=== PATIENT | male | born 1950 | race Caucasian/White ===

== ENCOUNTER → 2016-04-23 | Outpatient (CLI) | payer BC ==
[~2016-04-23] VITALS: Ht 162.6 cm; Wt 75.3 kg
[2016-04-23] VITALS (10 sets, daily range): BP systolic 108–145; BP diastolic 64–88
[~2016-04-23] MED LIST: ACETAMINOPHEN 325 MG TABLET. PO PRN; ASPI81TA2 PO; AZEL137S3 NS; BUDE10.2 IH; CARV12.52 PO; CONTRAST GIVEN MC PRN; DILTIAZEM IV PUSH 10 MG, NITROGLYCERIN 4MG SYRINGE 4 MG, HEPARIN S0DIUM 10,000 UNIT, VI... INT CAT ONE; DILTIAZEM IV PUSH 25 MG/5 ML VIAL. ONE; FENTANYL PF 100 MCG/2 ML VIAL. IV ONE; FENTANYL PF 250 MCG/5 ML VIAL. IV ONE; FENTANYL PF 250 MCG/5 ML VIAL. ONE; FLUT16SP NS; FOLI400T2 PO; HEPARIN for ARTERIAL LINE 1,500 ML ONE; HEPARIN for IV BOLUS 10,000 UNIT/10 ML VIAL. IV ONE; HEPARIN for IV BOLUS 10,000 UNIT/10 ML VIAL. ONE; INSU100C4 SQ; INSU100V8 SQ; IODIXANOL 320 MG/ML 100 ML VIAL. IART ONE; IODIXANOL 320 MG/ML 100 ML VIAL. ONE; IV 1/2 NORMAL SALINE 1,000 ML IV SCH; IV NORMAL SALINE 1000ML BAG 1,000 ML IV SCH; LIDOCAINE 2% 20 ML VIAL. IJ ONE; LIDOCAINE 2% 20 ML VIAL. ONE; LISI-334 PO; MAGNESIUM HYDROXIDE 2,400 MG/30 ML ORAL.SUSP. PO PRN; METF10002 PO; MIDAZOLAM HCL 2 MG/2 ML VIAL. IV ONE; MIDAZOLAM HCL/PF 5 MG/5 ML VIAL IV ONE; MIDAZOLAM HCL/PF 5 MG/5 ML VIAL ONE; NAPR500T8 PO; NIAC500T PO; NITROGLYCERIN 4 MG/20 ML SYRINGE for CATH LAB. ONE; NITROGLYCERIN SUBLINGUAL 0.4 MG BOTTLE OF 25. SL PRN; OMEP20TA PO; SIMV40TA3 PO; TERB250T8 PO; ZOLP10TA4 PO
[2016-04-23 09:38] LABS: HEMATOCRIT 49.1 % (39.0-53.0); HEMOGLOBIN 16.5 g/dL (13.0-17.5); RED BLOOD COUNT 5.46 x10^6/uL (4.30-5.70); RED CELL DISTRIBUTION WIDTH 13.2 % (11.5-14.5); WHITE BLOOD COUNT 8.8 x10^3/uL (4.0-11.0)
[2016-04-23 09:56] LABS: PROTHROMBIN TIME PATIENT 12.3 SEC (11.7-14.0)
[2016-04-23 10:04] LABS: CREATININE 0.9 mg/dL (0.7-1.3); GFR 84.4; POTASSIUM 4.5 mmol/L (3.5-5.1)
--- NOTE | 2016-04-23 10:37 | PDOC ---
MODERATE SEDATION ASSESSMENT RISKS/ALTERNATIVES Risks/Alternatives Risks and alternatives of this type of sedation and procedure discussed with: RISK/ALTERNATIVES: Patient H & P ON CHART H & P H & P on chart and reviewed for co-morbid conditions and appropriate labs. H&P ON CHART: Yes STATUS PREG STATUS ASSESSED: N/A MEDS/ALLERGIES REVIEWED Meds/Allergies Reviewed Medications and Allergies including time and route of recently administered narcotics and sedatives. MEDS/ALLERGIES REVIEWED: Yes ASA RATING ASA RATING: II AIRWAY ASSESSMENT Airway Assessment Airway patency, oral function limitations, presence of caps, crowns, dentures, partials, and ability to extend neck assessed. AIRWAY ASSESSMENT: Yes MALLAMPATI SCORE MALLAMPATI SCORE: II PRE-SEDATION ASSESSMENT PRE-SEDATION ASSESSMENT: Yes ISABELLE ALEJANDRE MD Apr 23, 2016 10:36
--- NOTE | 2016-04-23 13:40 | CARD ---
APPROVED REPORT Patient StatusOUT-PATIENT Rubber Compounder: Beckie Torres RT (R) Procedure(s) performed: 1. Aortogram with bilateral lower extremity runoff. 2. Successful orbital atherectomy/balloon SURVEY COORDINATOR to right superficial femoral artery. INDICATION FOR PROCEDURE The indication(s) include : Peripheral vascular disease with claudication. PROCEDURE NARRATIVE After explaining the risks, benefits and alternative options, informed consent was obtained from dave ent. Patient brought to the [facility] and his left groin was prepped and draped in the usual f ashion. 20 mL of 2% lidocaine was infiltrated into the skin and subcutaneous tissues for local anest hesia. Arterial access was obtained the left common femoral artery and a 5 Gabonese sheath was inserte d. A 5 Gabonese pigtail catheter was used to perform aortogram with bilateral lower extremity runoff. The following findings were noted. FINDINGS 1. No significant stenosis involving the distal descending aorta, bilateral common iliac and externa l iliac arteries. 2. No significant stenosis involving bilateral common femoral arteries. 3. The right superficial femoral artery showed 90% stenosis in the midsegment. The left superficial femoral artery did not show any significant stenosis. 4. Bilateral popliteal arteries did not show any significant stenosis. There is three vessel runoff below the knee bilaterally. INTERVENTION The sheath in the left groin was exchanged to a 45 cm 6 Gabonese destination sheath that was advanced o tianna the aortic anton into the right superficial femoral artery with the help of 4 crossover catheter . The stenosis in the midsegment of the right superficial femoral artery was crossed with a 0.014 in ch viper guidewire. Multiple atherectomy passes were performed using 1.5 CSI Stealth orbital atherec fazal catheter. Subsequently this was predilated with a 5.5 x 80 mm [place] balloon. Follow-up angiog nancy showed resolution of the stenosis to 0% with good distal flow. Patient tolerated the procedure well. Hemostasis in the left groin was achieved using Perclose suture closure device. There were n o immediate complications. Conclusion Successful orbital atherectomy/SURVEY COORDINATOR to right superficial femoral artery. Recommendations Risk factor modification.
== END | disposition home or self-care (01) ==
LOC: CCL 09:00
PROVIDERS: ATTEND Internal Medicine Cardiovascular Disease
DX: I73.9 Peripheral vascular disease, unspecified (principal); J44.9 Chronic obstructive pulmonary disease, unspecified; K21.9 Gastro-esophageal reflux disease without esophagitis; E11.9 Type 2 diabetes mellitus without complications; F17.200 Nicotine dependence, unspecified, uncomplicated
CPT/HCPCS: 36415; 37225; 75630; 80048; 85027; 85610; 85730; C1725; C1769; C1771; C1892; G0269; J2250; J3010; J3490; J7030

== ENCOUNTER → 2016-11-22 | Outpatient (CLI) | payer MEDICARE ==
[2016-04-23 13:45] VITALS: BP 122/77
[~2016-11-22] MED LIST changes: -ACETAMINOPHEN 325 MG TABLET. PO PRN; +ASPI-630 PO; -ASPI81TA2 PO; -CONTRAST GIVEN MC PRN; -DILTIAZEM IV PUSH 10 MG, NITROGLYCERIN 4MG SYRINGE 4 MG, HEPARIN S0DIUM 10,000 UNIT, VI... INT CAT ONE; -DILTIAZEM IV PUSH 25 MG/5 ML VIAL. ONE; -FENTANYL PF 100 MCG/2 ML VIAL. IV ONE; -FENTANYL PF 250 MCG/5 ML VIAL. IV ONE; -FENTANYL PF 250 MCG/5 ML VIAL. ONE; -HEPARIN for ARTERIAL LINE 1,500 ML ONE; -HEPARIN for IV BOLUS 10,000 UNIT/10 ML VIAL. IV ONE; -HEPARIN for IV BOLUS 10,000 UNIT/10 ML VIAL. ONE; -IODIXANOL 320 MG/ML 100 ML VIAL. IART ONE; -IODIXANOL 320 MG/ML 100 ML VIAL. ONE; -IV 1/2 NORMAL SALINE 1,000 ML IV SCH; -IV NORMAL SALINE 1000ML BAG 1,000 ML IV SCH; -LIDOCAINE 2% 20 ML VIAL. IJ ONE; -LIDOCAINE 2% 20 ML VIAL. ONE; -MAGNESIUM HYDROXIDE 2,400 MG/30 ML ORAL.SUSP. PO PRN; +METF-620 PO; -METF10002 PO; -MIDAZOLAM HCL 2 MG/2 ML VIAL. IV ONE; -MIDAZOLAM HCL/PF 5 MG/5 ML VIAL IV ONE; -MIDAZOLAM HCL/PF 5 MG/5 ML VIAL ONE; -NITROGLYCERIN 4 MG/20 ML SYRINGE for CATH LAB. ONE; -NITROGLYCERIN SUBLINGUAL 0.4 MG BOTTLE OF 25. SL PRN; -OMEP20TA PO; +OMEP20TA8 PO
--- NOTE | 2016-11-22 16:54 | RAD ---
APPROVED REPORT Patient Location : OUT-PATIENT Indications Lower Extremity Edema : Bilateral Findings The right great saphenous vein measures approximate 6 mm and does not show any evidence of reflux. The left great saphenous vein measures approximately 5.4 mm and does not show any evidence of reflux The bilateral lesser saphenous veins do not show any evidence of reflux and measure approximately 2 m m. Critical Notification Critical Value: No <Conclusion> No evidence of reflux in the bilateral greater and lesser saphenous veins.
== END | disposition home or self-care (01) ==
LOC: US 08:51
PROVIDERS: ATTEND Internal Medicine Cardiovascular Disease
DX: R60.0 Localized edema (principal)
CPT/HCPCS: 93970

== ENCOUNTER → 2018-06-23 | Outpatient (CLI) | payer MEDICARE ==
[2016-04-23 13:45] VITALS: BP 122/77
[~2018-06-23] MED LIST changes: +CARV12.511 PO; -CARV12.52 PO; -METF-620 PO; +METF10007 PO; +TERB250T11 PO; -TERB250T8 PO
--- NOTE | 2018-06-23 08:38 | RAD ---
Low-dose CT of the chest without contrast, 06/23/2018: HISTORY: Smoking history, shortness of breath Noncontrast scans were obtained as requested. Moderate emphysematous changes are present in the lungs with multiple subpleural blebs. There are a few scattered linear parenchymal scars. Several granulomata are present in the left lung. A tiny calcified granuloma is present medially in the right lower lobe. There is a 6 mm noncalcified peripheral pulmonary nodule in the anterolateral aspect of the right middle lobe as seen on axial image 154 of series #2 and sagittal image 301 of series #8. This nodule is slightly elongated. There is a tiny 3 mm nodule in the lateral aspect of the right upper lobe as seen on image 103 of series #2. There is a tiny elongated subpleural opacity in the lateral aspect of the right lower lobe as best seen on coronal image 203 of series #7 and axial image 202 of series #2. The configuration is most compatible with a scar. A similar smaller scarlike opacity is seen laterally in the right lower lobe on axial image 185 of series #2. Several other very tiny nodules are noted such as a 2 mm peripheral nodule in the left lower lobe as seen on image 204 series #2. There is moderate calcific plaquing of the thoracic aorta without evidence of aneurysm. Moderate coronary artery calcifications are present. There is moderate calcification of the mitral annulus. The heart is not enlarged. There are calcified mediastinal and left hilar lymph nodes compatible with old granulomatous disease. No mediastinal adenopathy is evident. Moderate multilevel degenerative changes are present in the spine. IMPRESSION: 1. Moderate pulmonary emphysema with parenchymal scarring. 2. Old healed granulomatous disease in the chest. 3. Several small nonspecific pulmonary nodules are noted as described above. This represents Lung-RADS category 3, probably benign. Low-dose CT follow-up in 6 months is suggested. 4. Moderate coronary artery calcifications. PQRS Compliance Statement: One or more of the following individualized dose reduction techniques were utilized for this examination: 1. Automated exposure control 2. Adjustment of the mA and/or kV according to patient size 3. Use of iterative reconstruction technique Electronically signed by: Jose Javed MD (06/23/2018 8:35 AM) [facility]
--- NOTE | 2018-06-23 08:46 | RAD ---
Abdominal aortic ultrasound, 06/23/2018: HISTORY: Aortic screening, tobacco abuse A limited exam of the abdominal aorta was performed. There are moderate scattered atherosclerotic plaques. The aorta measures 1.5 cm in greatest width. There is no evidence of aortic aneurysm. Incidental note was made of echogenic foci within the gallbladder compatible with gallstones. The gallbladder is largely collapsed. IMPRESSION: 1. Aortic atherosclerosis without evidence of abdominal aortic aneurysm. 2. Incidental note is made of cholelithiasis. Electronically signed by: Jose Javed MD (06/23/2018 8:43 AM) [facility]
== END | disposition home or self-care (01) ==
LOC: US 07:43
PROVIDERS: ATTEND Physician Assistant Surgical
DX: Z12.2 Encounter for screening for malignant neoplasm of respiratory organs (principal); J43.9 Emphysema, unspecified; R91.8 Other nonspecific abnormal finding of lung field; I70.0 Atherosclerosis of aorta; K80.20 Calculus of gallbladder without cholecystitis without obstruction; I25.10 Atherosclerotic heart disease of native coronary artery without angina pectoris; Z87.891 Personal history of nicotine dependence
CPT/HCPCS: 76770; G0297

== ENCOUNTER → 2019-02-15 | Outpatient (CLI) | payer MEDICARE ==
[2016-04-23 13:45] VITALS: BP 122/77
--- NOTE | 2019-02-15 11:34 | RAD ---
CT CHEST WO CONTRAST Indication: Lung nodule Technique: Noncontrast CT imaging was performed of the chest as per low dose protocol, multiplanar reconstruction images submitted. One or more of the following individualized dose reduction techniques were utilized for this examination: 1. Automated exposure control 2. Adjustment of the mA and/or kV according to patient size 3. Use of iterative reconstruction technique. Comparison: June 23, 2018 Findings: There is a 0.6 cm left upper lobe nodule image 1 which is new. 0.5 cm right lower lobe nodule image 210 series 2 is stable. 0.3 to 0.4 cm right lower lobe nodule image 192 is stable. 0.2-0.3 cm right lower lobe subpleural nodule image 159 is stable. Tiny 0.2 cm posterior right upper lobe nodule image 94 is unchanged. 0.2 cm right upper lobe nodule image 60 is unchanged. 2 small right upper lobe nodules image 67 about 0.2 cm each are unchanged. 0.5 cm right middle lobe nodule image 164 is unchanged. 0.2 cm right lower lobe nodule image 225 is stable. 0.4 cm left lower lobe nodule image 221 is stable. There is again some calcified nodularity of the left upper lobe. There is emphysema. There is no pleural or pericardial fluid, pneumothorax, new lobar consolidation. There is coronary calcification. No new significantly enlarged nodes are identified of the chest, some stable subcentimeter mediastinal nodes. IMPRESSION: 1. There is new focus of noncalcified nodularity of the left upper lobe about 0.6 cm Lung-RADS category 4A, 3 month low-dose CT recommended. Other pulmonary nodules are stable. 2. There is coronary calcification. 3. There is emphysema. Electronically signed by: Dutch Paris MD (02/15/2019 11:31 AM) [id number]
== END | disposition home or self-care (01) ==
LOC: CT 10:28
PROVIDERS: ATTEND Family Medicine
DX: J43.9 Emphysema, unspecified (principal); R91.8 Other nonspecific abnormal finding of lung field; I25.10 Atherosclerotic heart disease of native coronary artery without angina pectoris
CPT/HCPCS: 71250

== ENCOUNTER → 2019-04-09 | Outpatient (CLI) | payer MEDICARE ==
[2016-04-23 13:45] VITALS: BP 122/77
[~2019-04-09] MED LIST changes: +SIMV40TA18 PO; -SIMV40TA3 PO
--- NOTE | 2019-04-09 12:21 | RAD ---
EXAM: Chest, 2 views. HISTORY: COPD exacerbation. COMPARISON: 02/15/2019. FINDINGS: 2 views of the chest are obtained. There are coarse likely chronic interstitial markings. There is no consolidation, effusion or pneumothorax. There is hyperinflation due to emphysema. The heart is normal in size. There are few calcified granulomas. IMPRESSION: 1. Emphysema with chronic coarse interstitial changes. 2. Note is made that pulmonary nodules demonstrated on the recent CT are not well seen radiographically. Please refer to the prior CT report for follow-up recommendations. Electronically signed by: Angela Torres MD (04/09/2019 12:17 PM) [place] [id number]
== END | disposition home or self-care (01) ==
LOC: RAD 10:51
PROVIDERS: ATTEND Family Medicine
DX: J43.8 Other emphysema (principal); R91.8 Other nonspecific abnormal finding of lung field
CPT/HCPCS: 71046

== ENCOUNTER → 2019-04-23 | Outpatient (CLI) | payer MEDICARE ==
[2016-04-23 13:45] VITALS: BP 122/77
--- NOTE | 2019-04-23 17:56 | RAD ---
Examination: CT LOW DOSE LUNG SCREENING History: Lung nodule, 3 packs a day smoking history for 53 years. Comparison/Correlation: 06/23/2018 low dose lung cancer screening CT exam, 02/15/2019 CT chest without contrast Findings: Axial images of the chest were obtained without contrast according to low-dose lung cancer screening CT protocol. Coronary arterial calcific involvement of the coronary arteries is noted. Mitral annular calcification is visible. Emphysematous involvement of the lung zavala again identified this is primarily the upper lung zavala. Minimal lingular intravenous atelectasis is present. Calcified granuloma granulomas at the left mid thoracic level adjacent to the major fissure noted. Punctate noncalcified granulomas are present bilaterally involving the lung zavala similar to the prior exam. These are especially prominent at the upper lung field level. Noncalcified nodule in the right lateral mid thoracic level measuring up to 0.55 cm is unchanged and this is currently seen on axial image 162 of series 2. Noncalcified nodule involving the right lower lobe on axial image 202 of series 2 measuring 0.5 cm diameter is also unchanged compared to 06/23/2018. No suspicious left upper lobe nodule identified. Visualized upper abdomen is unremarkable. Advancement thoracic degenerative disc space narrowing with sclerosis of multiple consecutive vertebral bodies again identified. A Impression: BI-RADS Category 2-benign. Annual low-dose lung cancer screening CT examination is recommended. PQRS Compliance Statement: One or more of the following individualized dose reduction techniques were utilized for this examination: 1. Automated exposure control 2. Adjustment of the mA and/or kV according to patient size 3. Use of iterative reconstruction technique Electronically signed by: Gonzalo Echols MD (04/23/2019 5:53 PM) [facility]
== END | disposition home or self-care (01) ==
LOC: CT 10:57
PROVIDERS: ATTEND Family Medicine
DX: Z12.2 Encounter for screening for malignant neoplasm of respiratory organs (principal); J43.9 Emphysema, unspecified; J98.11 Atelectasis; R91.8 Other nonspecific abnormal finding of lung field; F17.210 Nicotine dependence, cigarettes, uncomplicated; I25.10 Atherosclerotic heart disease of native coronary artery without angina pectoris; I34.0 Nonrheumatic mitral (valve) insufficiency; M51.34 Other intervertebral disc degeneration, thoracic region; M48.04 Spinal stenosis, thoracic region
CPT/HCPCS: G0297

== ENCOUNTER → 2020-09-22 | Outpatient (CLI) | payer MEDICARE ==
[2016-04-23 13:45] VITALS: BP 122/77
[~2020-09-22] MED LIST changes: -LISI-334 PO; +LISI20TA18 PO; -TERB250T11 PO; +TERB250T84 PO
--- NOTE | 2020-09-22 12:50 | RAD ---
EXAM: Chest CT without intravenous contrast. HISTORY: Pulmonary nodule follow-up. TECHNIQUE: Computed tomographic images of the chest were obtained without contrast. Multiplanar refor matting was performed. *One or more of the following individualized dose reduction techniques were utilized for this examina tion: 1. Automated exposure control. 2. Adjustment of the mA and/or kV according to patient size. 3. Use of iterative reconstruction technique. COMPARISON: 04/23/2019, 02/15/2019. FINDINGS: There is pulmonary emphysema with associated subpleural bleb formation. There is no pneumot horax or pleural effusion. There is no infiltrate. There are multiple bilateral pulmonary nodules. Th e largest nodule abuts the pleura of the posterior lateral right lower lobe measuring 6 mm, stable co mpared to a study performed 02/15/2019. There is an adjacent smaller nodule measuring 5 mm superior t o this location. There is a 3 mm nodule within the lateral right upper lobe, also stable in appearanc e. There are several 2 mm nodules within the bilateral upper and lower lobes and a predominantly dav pheral distribution. There are calcified granulomas within the left upper lobe. The heart is normal in size. There is calcified atherosclerotic plaque involving the aorta and bhagat ry arteries. There is calcification of the aortic valve and mitral valve annulus. There are nonspecif ic stable mediastinal lymph nodes. The stability favors a benign physiologic or reactive in etiology. There is stable pleural parenchymal scarring involving the lingula. There is no acute finding involv ing the upper abdomen. There is a simple cyst within the right kidney. Follow-up is not routinely per formed for simple cysts. There is degenerative disc space narrowing with endplate remodeling and scle rosis involving the T6-T9 vertebral bodies. There is stable compared to prior studies. IMPRESSION: 1. Multiple bilateral pulmonary nodules, the largest of which measures 6 mm within the right lower lo be. These are not appreciably changed compared to prior studies dating to 02/15/2019. This favors bruce ignity. Lung RADS category 2: 12 month follow-up is recommended. 2. Emphysema. 3. Stable nonspecific mediastinal lymph nodes, likely physiologic or reactive in etiology. 4. Heavily calcified atherosclerotic plaque involving the coronary arteries and calcification of the aortic valve. 5. Stable sclerotic changes with disc space narrowing involving the T6-T9 vertebral segments. Given a history of the spinal cord lesion, this may be due to radiation changes. The possibility of changes due to the sequela of prior discitis/osteomyelitis is not excluded. Electronically signed by: Angela Torres MD (09/22/2020 12:47 PM) [id number]
== END ==
LOC: CT 10:20
PROVIDERS: ATTEND Family Medicine
DX: R91.8 Other nonspecific abnormal finding of lung field (principal); I25.10 Atherosclerotic heart disease of native coronary artery without angina pectoris
CPT/HCPCS: 71250

== ENCOUNTER → 2020-09-25 | Outpatient (CLI) | payer MEDICARE ==
[2016-04-23 13:45] VITALS: BP 122/77
--- NOTE | 2020-09-25 10:59 | RAD ---
EXAM: Lumbar spine MRI without contrast. HISTORY: Radiculopathy. TECHNIQUE: Multiplanar, multisequence magnetic resonance imaging of the lumbar spine was performed wi thout contrast. COMPARISON: None. FINDINGS: There is a transitional lumbosacral segment. This is considered a partially sacralized L5 s egment with rudimentary L5-S1 disc for this dictation. The the sacralized right L5 transverse process articulates with the underlying sacrum, a normal variant. There is mild S-shaped lumbar scoliosis, w ith dextrocurvature centered at L4-L5 and levocurvature centered at L2-L3. There is degenerative endp late remodeling with disc space narrowing and osteophytosis primarily along the left aspect of L4-L5. There are few small endplate Schmorl's nodes. There are few osseous hemangiomas. There is no suspici ous osseous lesion or acute osseous finding. The conus terminates at T12. There are small right renal cyst. Follow-up is not routinely performed for simple cysts. There is suspected congenital narrowing of the central canal at the lumbar levels. There is prominent epidural fat at the lumbar levels. At T12-L1, there is a shallow posterior central disc protrusion and annular tear superimposed on a di sc bulge and endplate remodeling. There is mild bilateral foraminal stenosis. At L1-L2, there is no stenosis. At L2-L3, there is a disc bulge and endplate remodeling. There is mild right foraminal stenosis. Ther e is mild central canal stenosis and narrowing of the right lateral recess. At L3-L4, there is a right foraminal to extra foraminal disc protrusion and annular tear with osteoph yte complex superimposed on a right lateral predominant disc bulge and endplate osteophytosis. There is moderate right and mild left facet arthropathy. There is a small posterior right facet joint synov ial cyst. There is severe right and moderate left foraminal stenosis. There is severe central canal s tenosis. At L4-L5, there is a left lateral recess to extra foraminal disc protrusion and osteophyte complex albarado perimposed on a diffuse disc bulge and left lateral predominant endplate osteophytosis. There is giuliana re left facet arthropathy. There is moderate right and severe left foraminal stenosis. There is sever e central canal stenosis. At L5-S1, there is a rudimentary disc at this level. There is a shallow right foraminal to extra fora pieter disc protrusion superimposed on right lateral predominant endplate remodeling. There is mild bi lateral foraminal stenosis. IMPRESSION: 1. Multilevel degenerative change involving the lower thoracic and lumbar spine, described in detail above. This is associated with mild bilateral foraminal stenosis at T12-L1, mild right foraminal and central canal stenosis with narrowing of the right lateral recess at L2-L3, severe right and moderate left foraminal and severe central canal stenosis at L3-L4, moderate right and severe left foraminal and severe central canal stenosis at L4-5 and mild bilateral foraminal stenosis at L5-S1. 2. Lumbar scoliosis. 3. Transitional lumbosacral segment, considered a partially sacralized L5 segment for this dictation. Electronically signed by: Angela Torres MD (09/25/2020 10:57 AM) [id number]
== END ==
LOC: MRI 09:21
PROVIDERS: ATTEND Family Medicine
DX: M47.26 Other spondylosis with radiculopathy, lumbar region (principal); M51.36 Other intervertebral disc degeneration, lumbar region; M71.38 Other bursal cyst, other site
CPT/HCPCS: 72148

== ENCOUNTER → 2020-10-14 | Outpatient (CLI) | payer MEDICARE ==
[2016-04-23 13:45] VITALS: BP 122/77
[~2020-10-14] MED LIST changes: +ALBU0.63 NEB; +CHOL100L MC; +CYAN25008 PO; +DAPA10TA PO; +FLUT1BLS3 IH; +IOHEXOL 180 MG/ML 10 ML VIAL. ONE; +IPRA0.2S5 NEB; +IPRA4AER IH; +methylPREDNISolone ACETATE 40 MG/ML VIAL. ONE; +methylPREDNISolone ACETATE 80 MG/ML VIAL. ONE
--- NOTE | 2020-10-14 13:03 | PDOC1 ---
INITIAL PAIN CONSULT DATE OF SERVICE: DOS: DATE: 10/14/20 TIME: 12:58 CHIEF COMPLAINT: Chief Complaint: Low back and left lower extremity pain HISTORY OF PRESENT ILLNESS: 70-year-old male presents history of pain in the low back and left lower extremity for many years worse over the past 1 to 2 years not the result of any specific injury or activities where time low back with walking standing changing positions patient reports is most noticeable with standing in 1 place but also with ambulation patient reports is better with sitting or laying down but generally wakes him from sleep about 3 times a night especially if he lays on his left side. Patient reports does not affect his bowel bladder control but does affect his ability to walk he is not getting assistive devices however patient has had epidural injections in the past with very good results also done physical therapy in the past which has been helpful but nothing recently patient is still doing some stretching and exercises and tries to walk daily but lately has become difficult as because the pain is getting worse. Patient is taking hydrocodone as well as any acetaminophen the hydrocodone does help but the acetaminophen not significantly. Patient rates his disability rating 0-10 10 being the worst is a 10 with family home responsibilities recreation social activity occupation 7 with self-care and 5 with life support activities. Patient did have a MRI scan of the lumbar spine showing multilevel degenerative change with bilateral foraminal stenosis T12-L1 right foraminal and central canal stenosis with narrowing of the right lateral recess at L2-3 severe right and moderate left foraminal and severe central canal stenosis L3-4 moderate right and severe left foraminal and severe central canal stenosis L4-5 with mild bilateral foraminal narrowing and stenosis at L5-S1. Patient reports no loss of motor function but significant fatigability with standing and walking especially on the right lower extremity. PAST MEDICAL HISTORY: PMH: Arthritis, hypertension, COPD, cigarette smoking, diabetes, hearing loss, pancreatitis PREVIOUS SURGERIES: Past Surgical Hx: Skin graft, rhinoplasty CURRENT MEDICATIONS: Current Meds: Active Scripts Medications Dose Route/Sig Max Daily Dose Days Date Category Dose Instructions Vitamin B12 (Cyanocobalamin (Vitamin B-12)) 2,500 Mcg Tablet 1,000 Mcg PO DAILY 10/14/20 Reported Vitamin D3 (Cholecalciferol (Vitamin D3)) 100 Gm Liquid 100 Gm MC DAILY 10/14/20 Reported Ipratropium [place] 0.2 Mg/1 Ml Solution 1 Vial NEB QID 10/14/20 Reported Albuterol Sulfate Neb Soln (Albuterol Sulfate) 0.63 Mg/3 Ml Vial.neb 1 Vial NEB QID 10/14/20 Reported Combivent Respimat Inhal (Ipratropium/Albuterol Sulfate) 4 Gm Aer.w.adap 2 Inh IH QID 10/14/20 Reported Trelegy Ellipta 100-62.5-25 (Fluticasone/Umeclidin/Vilanter) 1 Each Blst.w.dev 1 Each IH DAILY 10/14/20 Reported Farxiga (Dapagliflozin Propanediol) 10 Mg Tablet 10 Mg PO DAILY 10/14/20 Reported Fluticasone Propionate Nasal [place] (Fluticasone Propionate) 16 Gm [place].susp 2 [place] NS DAILY 04/23/16 Reported Omeprazole 20 Mg Tablet.dr 20 Mg PO DAILY 04/23/16 Reported Azelastine Hcl 137 Mcg/0.137 Ml Brenton.pump 2 [place] NS BID 04/23/16 Reported Zolpidem Tartrate 10 Mg Tablet 10 Mg PO PRN QHS PRN 04/23/16 Reported Lantus (Insulin Glargine,Hum.rec.anlog) 100 Unit/1 Ml Vial 38 Unit SQ DAILY 12/26/14 Reported Novolog (Insulin Aspart) 100 Unit/1 Ml Cartridge 24 Unit SQ BID 12/26/14 Reported Aspirin 81 Mg Tab.chew 81 Mg PO 12/26/14 Reported Lisinopril 20 Mg Tablet 20 Mg PO DAILY 12/26/14 Reported Simvastatin 40 Mg Tablet 40 Mg PO HS 12/26/14 Reported Carvedilol (Carvedilol) 12.5 Mg Tablet 12.5 Mg PO BIDWMEALS 12/26/14 Reported Metformin Hcl 1,000 Mg Tablet 1,000 Mg PO BID 12/26/14 Reported Resume in 48 hours, either Tuesday evening or Tuesday morning 04/26/16. ALLERGIES; Allergies: Coded Allergies: folic acid (Verified Allergy, Intermediate, Rash, 10/14/20) meloxicam (Verified Allergy, Intermediate, stomach, 10/14/20) varenicline (Verified Allergy, Intermediate, rash, 10/14/20) Sulfa (Sulfonamide Antibiotics) (Unverified Allergy, Unknown, 06/10/14) FAMILY HISTORY: Family Hx: Diabetes, heart disease SOCIAL HISTORY: Social Hx: Patient is out of alcohol smokes about 1 pack a day and has for the past 54 years continues to smoke does not use any illegal illicit or recreational drugs is lives with his spouse lives locally in [facility] and is currently retired. REVIEW OF SYSTEMS: ROS: Positive for those items mentioned in history of present illness, all systems are reviewed, otherwise negative ,and are complete full and well-documented on patient's chart. PHYSICAL EXAM: VS: Blood pressure is 141/70 pulse 65 respirations 18 temperature 97.8 F height is 5 feet 4 inches weight is 168 pounds PE: PHYSICAL EXAMINATION: GENERAL: The patient is awake, alert, oriented, appropriate, very pleasant in demeanor HEENT: Shows normocephalic, atraumatic. Extraocular movements are intact and symmetrical. Oral cavity: Mucous membranes moist and pink. NECK: Shows anterior throat supple without palpable lymphadenopathy noted. Swallow reflex symmetrical. CHEST: Shows normal on inspection. Breath sounds are clear bilaterally, distant but no rales rhonchi wheezes auscultated. HEART: Shows S1, S2 clear. No murmurs auscultated. ABDOMEN: Soft, nontender, nondistended, obese. No palpable organomegaly is no david. No rebound or guarding demonstrated. BACK: Shows spine grossly in the midline. Normal-appearing cervical lordotic curvature. There is slightly increased thoracic kyphosis, some minor flattening of the lumbar lordotic curvature. Lumbar paraspinous muscles show symmetrical on inspection, on palpation shows some moderate tenderness diffusely throughout the upper, middle and lower distribution of the paraspinous muscles bilaterally and also into the lower thoracic paraspinous musculature, firm and tender, but without specific trigger points, without radiation of pain. The patient has good rotational motion of the lumbar spine, both laterally as well as extension and flexion without significant difficulty. No tenderness over the spinous processes, sacrum or sacroiliac regions. EXTREMITIES: Lower extremities show deep tendon reflexes 2+ in the patellar and tendo calcaneus tendons. Motor exam is 5 on a scale of 5 with right dorsiflexion, extension, quadriceps and hamstring flexion and 4/5 on the left. Peripheral pulses are 1+ posterior tibial. No peripheral edema is noted bilaterally. Lower extremities are warm and dry to touch, equal in color and appearance. Straight leg raise noted to be negative bilaterally. Gaenslen's and Scott's maneuvers are negative bilaterally as well. The patient is able to stand, stand on his toes without significant difficulty loss of balance walks with a slight shuffling gait does not appear to favor the right or left lower extremity significantly. Patient not use any assistive devices to ambulate. SKIN: Shows warm and dry, good turgor. No edema. No sores, rashes or bruising throughout. IMPRESSION: Impression: 70-year-old male with long history low back left lower extremity pain in a r adicular fashion. Slight MRI scan lumbar spine as noted Arthritis Hypertension COPD Diabetes Hearing loss Plan: Options were discussed with patient including conservative medical management physical therapies interventional techniques. Patient likes her injection techniques. We discussed a lumbar epidural steroid injection using description as well as anatomical models to describe the procedure. Risks were discussed including but not limited to: Bleeding, infection, possibility of epidural hematoma and subsequent neurological compromise, dural puncture, headaches, spinal cord and/or nerve damage, side effects of steroid medication, and poor results regarding pain control. Patient understands and wished to proceed. Patient will return to clinic in approximate 2 weeks for follow-up, was counseled as to return appointment activity level and side effects to be aware of. Procedure is lumbar epidural steroid injection under local anesthetic using sterile prep and drape at the L4-5 level using C-arm fluoroscopic guidance in both AP and lateral views medications injected is 120 mg Depo-Medrol +10mL preservative-free normal saline and 2 mL contrast- condition at discharge is stable patient tolerated procedure well had no complications. MARLEN HE MD Oct 14, 2020 13:03
--- NOTE | 2020-10-14 13:04 | PDOC4 ---
Procedure Note: Procedure Note: Patient was consented for lumbar epidural steroid injection. Risks were discussed including but not limited to: Bleeding, infection, possibility of epidural hematoma and subsequent neurological compromise, dural puncture, headaches, spinal cord and/or nerve damage, side effects of steroid medication, and poor results regarding pain control. Patient understands and wished to proceed. Procedure is lumbar epidural steroid injection under local anesthetic using sterile prep and drape at the L5-S1 level using C-arm fluoroscopic guidance in both AP and lateral views medications injected is 120 mg Depo-Medrol +10mL preservative-free normal saline and 2 mL contrast- condition at discharge is stable patient tolerated procedure well had no complications. MARLEN HE MD Oct 14, 2020 13:03
== END | disposition home or self-care (01) ==
LOC: PNCL 09:10
PROVIDERS: ATTEND Anesthesiology
DX: M54.5 Low back pain (principal); M79.605 Pain in left leg; M19.90 Unspecified osteoarthritis, unspecified site; I10 Essential (primary) hypertension; J44.9 Chronic obstructive pulmonary disease, unspecified; E11.9 Type 2 diabetes mellitus without complications; K21.9 Gastro-esophageal reflux disease without esophagitis; F17.210 Nicotine dependence, cigarettes, uncomplicated; Z79.899 Other long term (current) drug therapy; Z79.4 Long term (current) use of insulin; Z79.82 Long term (current) use of aspirin; Z98.890 Other specified postprocedural states; Z82.49 Family history of ischemic heart disease and other diseases of the circulatory system; Z83.3 Family history of diabetes mellitus; Z88.2 Allergy status to sulfonamides; Z88.8 Allergy status to other drugs, medicaments and biological substances; Z72.89 Other problems related to lifestyle
CPT/HCPCS: 62323; J1030; J1040; Q9965

== ENCOUNTER → 2021-08-21 | Outpatient (CLI) | payer MEDICARE ==
[2016-04-23 13:45] VITALS: BP 122/77
[~2021-08-21] MED LIST changes: -IOHEXOL 180 MG/ML 10 ML VIAL. ONE; -OMEP20TA8 PO; +OMEP20TA91 PO; +REGADENOSON 0.4 MG/5 ML DISP.SYRIN. IV ONE; +TERB250T72 PO; -TERB250T84 PO; -methylPREDNISolone ACETATE 40 MG/ML VIAL. ONE; -methylPREDNISolone ACETATE 80 MG/ML VIAL. ONE
--- NOTE | 2021-08-21 11:47 | RAD ---
MR#: [id number] Date of Study: 08/21/2021 Ordering Physician: ISABELLE ALEJANDRE, Referring Physician: ISABELLE ALEJANDRE, Tech: Kareem Doyle MBA, RDMS, RVT, RDCS, RTR APPROVED REPORT Patient Location: OUT-PATIENT Indications PAD Findings Right arm 126, left arm 116 Right ankle 117, left ankle 125 Right SYDNEY 0.92, left SYDNEY 0.99 Critical Notification Critical Value: No <Conclusion> 1. Normal bilateral SYDNEY Signed by : Aamir Duncan, Electronically Approved : 08/21/2021 11:46:40
--- NOTE | 2021-08-21 11:49 | RAD ---
MR#: [id number] Date of Study: 08/21/2021 Ordering Physician: ISABELLE ALEJANDRE, Referring Physician: ISABELLE ALEJANDRE, Tech: Kareem Doyle MBA, RDMS, RVT, RDCS, RTR APPROVED REPORT Patient Location: OUT-PATIENT Indications PAD VELOCITY AND DOPPLER WAVEFORM ANALYSIS RIGHT cm/secWaveformSeverity LEFT cm/secWaveform Severity dCFA 90.0MonophasicdCFA 57.0Monophasic Prof Fem Art. 78.0MonophasicProf Fem Art. 58.0Monophasic Fem Art Prox. 60.0MonophasicFem Art Prox. 552.0Monophasic Fem Art Mid. 342.0MonophasicFem Art Mid. 90.0Monophasic Fem Art Dist. 69.0MonophasicFem Art Dist. 66.0Monophasic Pop Art(Fossa) 45.0MonophasicPop Art(AK) 41.0Monophasic WEB MARKETING COORDINATOR Prox. 76.0MonophasicPTA Prox. 52.0Monophasic WEB MARKETING COORDINATOR Dist. 75.0MonophasicPTA Dist. 38.0Monophasic Per Art Mid. 83.0MonophasicPer Art Mid. 54.0Monophasic NERI Prox. 64.0MonophasicATA Prox. 53.0Monophasic DPA 32MonophasicDPA 48Monophasic Findings Grayscale images of the bilateral lower extremity arterial vessels demonstrate moderate diffuse ather osclerosis. On the right side there is likely a greater than 50% stenosis involving the right mid SFA. Spectral waveforms are monophasic suggestive of loss of arterial elasticity given that the SYDNEY was grossly nor mal. On the left side there is likely greater than 75% stenosis involving the proximal SFA. Again the wav eforms are monophasic throughout the lower extremity arterial course. Cannot rule out more proximal inflow disease. Critical Notification Critical Value: No <Conclusion> 1. Bilateral greater than 50 to 75% stenosis involving the SFA. 2. Normal bilateral SYDNEY, clinical correlation recommended Signed by : Aamir Duncan, Electronically Approved : 08/21/2021 11:48:35
--- NOTE | 2021-08-21 15:55 | CARD ---
MR#: [id number] Date of Study: 08/21/2021 Ordering Physician: ISABELLE ALEJANDRE, Referring Physician: ISABELLE ALEJANDRE, Tech: Christen Murdock RDCS,RVT APPROVED REPORT EXAM: Two-dimensional and M-mode echocardiogram with Doppler and color Doppler. Other Information Quality : GoodHR: 67bpm Rhythm : NSR INDICATION COPD Dyspnea Hypertension/HCVD Diabetic 2D DIMENSIONS RVDd2.8 (2.9-3.5cm)Left Atrium(2D)3.5 (1.6-4.0cm) IVSd1.1 (0.7-1.1cm)Aortic Root(2D)3.4 (2.0-3.7cm) LVDd4.8 (3.9-5.9cm)LVOT Diameter2.2 (1.8-2.4cm) PWd1.1 (0.7-1.1cm)LVDs3.0 (2.5-4.0cm) FS (%) 36.0 %SV68.9 ml M-Mode DIMENSIONS RVDd2.51 (2.1-3.2cm) Aortic Valve AoV Peak Mickey.137.8cm/sAoV VTI34.0cm AO Peak GR.7.6mmHgLVOT Peak Mickey.98.7cm/s AO Mean GR.4mmHgAVA (VMAX)2.61cm2 Mitral Valve MV E Raezuwgf12.8cm/sMV E Peak Gr.15mmHg MV DECEL [id number] A Henwmgyr01.2cm/s MV E Mean Gr.5mmHgE/A Ratio1.4 Pulmonary Valve PV Peak Gehbmmkp35.7cm/s Tricuspid Valve TR P. Jjxsyqod108xv/sRAP SUUMKYJX5sxBv TR Peak Gr.63fiUqSENH81uuSm Pulmonary Vein S1 Mkpgdrtx07.7cm/sD2 Xqfwvhvm20.5cm/s PVa [id number] LEFT VENTRICLE The left ventricle is normal size. There is borderline concentric left ventricular hypertrophy. Left ventricular systolic function is normal. The left ventricular ejection fraction is within the normal range. The Ejection Fraction is 55-60%. No regional wall motion abnormalities noted. The left ventric ular diastolic function is normal. No left ventricle thrombus noted on this study. There is no ventri cular septal defect visualized. There is no left ventricular aneurysm. There is no mass noted in the left ventricle. RIGHT VENTRICLE The right ventricle is normal size. There is normal right ventricular wall thickness. The right ventr icular systolic function is normal. ATRIA The left atrium is mildly dilated. The right atrium is mildly dilated. The interatrial septum is inta ct with no evidence for an atrial septal defect or patent foramen ovale as noted on 2-D or Doppler im aging. AORTIC VALVE The aortic valve is mildly sclerotic. The aortic valve is trileaflet. Doppler and Color Flow revealed trace aortic regurgitation. There is no aortic valvular stenosis. There is no aortic valvular vegeta tion. MITRAL VALVE Mitral annular calcification is moderate. There is no evidence of mitral valve prolapse. There is no mitral valve stenosis. Doppler and Color Flow revealed mild mitral regurgitation. TRICUSPID VALVE The tricuspid valve is normal in structure and function. Doppler and Color Flow revealed trace to mil d tricuspid regurgitation. There is no tricuspid valve prolapse or vegetation. There is no tricuspid valve stenosis. PULMONIC VALVE The pulmonary valve is normal in structure and function. There is no pulmonic valvular regurgitation. There is no pulmonic valvular stenosis. GREAT VESSELS The aortic root is normal in size. The ascending aorta is normal in size. The pulmonary artery is nor mal. The IVC is normal in size and collapses >50% with inspiration. PERICARDIAL EFFUSION There is no pleural effusion. The pericardium appears normal. Critical Notification Critical Value: No <Conclusion> The left ventricle is normal size. Left ventricular systolic function is normal. The Ejection Fraction is 55-60%. There is borderline concentric left ventricular hypertrophy. Doppler and Color Flow revealed trace aortic regurgitation. There is no aortic valvular stenosis. Mitral annular calcification is moderate. There is no mitral valve stenosis. Doppler and Color Flow revealed mild mitral regurgitation. Doppler and Color Flow revealed trace to mild tricuspid regurgitation. Signed by : Thang Boo MD Electronically Approved : 08/21/2021 15:54:52
--- NOTE | 2021-08-21 16:08 | RAD ---
MR#: [id number] Date of Study: 08/21/2021 Ordering Physician: ISABELLE ALEJANDRE, Referring Physician: JIMMY HERNANDEZ Tech: RT Melo (R) (N) APPROVED REPORT Stress Nurse/Tech: Jimena Lentz R.N. Test Indications: dyspnea Cardiac History: copd, htn, dm, smoke Medications: see ehr Medical History: see ehr Resting ECG: sr with PAC Resting Heart Rate: 51 bpm Resting Blood Pressure: 142/74mmHg Pretest Chest Pain: No chest pain Nurse/Tech Notes lungs cta, heart tones regular Consent: The procedure was explained to the patient in lay terms. Informed consent was witnessed. Benitez eout was entered into [employer]. History and Stress Test performed by JIMMY Esteban, AYANNA (R) (N) Pharm. Details Pharmacologic stress testing was performed using 0.4mg per 5ml of regadenoson given intravenously ove r 7-10 seconds. Stress Symptoms No chest pain or symptoms. POST EXERCISE Reason for Termination: Infusion complete Target HR: No Max HR: 85 bpm Max Blood Pressure: 146/74mmHg Chest Pain: No. Arrhythmia: No. INTERPRETATION Stress EKG Conclusion: The resting EKG showed a sinus rhythm with mild nonspecific ST-T wave changes. No significant EKG changes from baseline. No EKG evidence of stress-induced ischemia. Imaging Protocol IMAGE PROTOCOL: Rest Tc-99m/stress Tc-99m 1 day Rest: Stress: Viability: Radiopharm.Tc99m [id number] Sestamibi Dose9.8mCi 33mCi Duration 13min. 13min. Img Date 08/21/2021 08/21/2021 Inj-Img [id number]. 60min. Rest Admin Site:IV - Right AntecubitalAdministrator:JIMMY Esteban ARRT (R)(N) Stress Admin Site: IV - Right AntecubitalAdministrator: JIMMY Esteban ARRT (R)(N) STRESS DATA End Diast. Vol.70.0mlLVEDV index BSA38.0ml End Syst. Vol.10.0mlLVESV index BSA5.0ml Myocardial Bdaz146.0gEject. Jimefshg83.0% Stress Scores Regional WT1.00Summed WT1.00 Regional WM0.00Summed WM0.00 LV Perfusion The stress scans showed no significant defects. The rest scans showed no significant defects. Nuclear imaging shows no reversible ischemia or infarct. Wall Motion Left ventricular systolic function is normal with an ejection fraction of greater than 70%. LV Perf. Quant 17 Seg. SSS0.00 17 Seg. SRS2.00 17 Seg. SDS0.00 Stress Defect Extent (% LAD)0.00Rest Defect Extent (% LAD)0.00Rev. Defect Extent (% LAD)0.00 Stress Defect Extent (% LCX) 0.00Rest Defect Extent (% LCX)0.00Rev. Defect Extent (% LCX)0.00 Stress Defect Extent (% RCA)0.00Rest Defect Extent (% RCA)0.00Rev. Defect Extent (% RCA)0.00 Stress Defect Extent (% CLIFFORD)0.00Rest Defect Extent (% CLIFFORD)0.00Rev. Defect Extent (% CLIFFORD)0.00 Conclusion 1. Mildly abnormal resting EKG but no EKG evidence of stress-induced ischemia. 2. Nuclear imaging shows no reversible ischemia or infarct. 3. Intact LV systolic function with an ejection fraction of greater than 70%. 4. Low risk Lexiscan nuclear stress test. Signed by : Thang Boo MD Electronically Approved : 08/21/2021 16:07:47
== END ==
LOC: ECHO 07:46
PROVIDERS: ATTEND Internal Medicine Cardiovascular Disease
DX: I08.3 Combined rheumatic disorders of mitral, aortic and tricuspid valves (principal); I70.203 Unspecified atherosclerosis of native arteries of extremities, bilateral legs; R94.31 Abnormal electrocardiogram [ECG] [EKG]; R06.09 Other forms of dyspnea
CPT/HCPCS: 78452; 93017; 93306; 93922; 93925; A9500; J2785; C8929